=== PATIENT | female | born 1975 | race Caucasian/White ===

== ENCOUNTER 2020-07-10 22:22 | Inpatient (IN) | payer SELFPAY ==
[2020-07-10] VITALS (7 sets, daily range): BP systolic 124–159; BP diastolic 74–99; PULSE 64–90; RESP 16–20; TEMP 36.4; O2SAT 96–100; BMI 30.9
--- NOTE | 2020-07-10 22:24 | ECG_ITS ---
[facility] Test Date: 2020-07-10 Pat Name: JOSEPH CASTAÑEDA Department: Room: Gender: Female Taxation Accountant: : 1975 Requested By: Reza Henriquez Order Number: [id number] Scar MD: Clifford Sim M.D. Measurements Intervals [place] Rate: 81 P: 31 MN: 159 QRS: 4 QRSD: 132 T: 68 QT: 437 QTc: 509 Interpretive Statements ELECTRONIC VENTRICULAR PACEMAKER-a sensed, V paced rhythm ABNORMAL RHYTHM ECG No previous ECG available for comparison Electronically Signed On 07-11-2020 20:10:41 HAND RIGGER by Clifford Sim M.D. [id number] f
--- NOTE | 2020-07-10 22:24 | W.ED.OVERDOS ---
HPI - Overdose General: Chief Complaint: Overdose Stated Complaint: OVERDOSE Time Seen by Provider: 07/10/20 22:23 Source: patient Limitations: no limitations History of Present Illness: HPI Narrative: 45-year-old female who took roughly 10 25 mg Benadryl's 1 to 2 hours ago and intent to kill herself. She states her son a year ago and she has been having increasing depression and thoughts of harming herself. She denies any previous psych placement. She denies any worsening improving factors. She is tearful here. complaint: intentional overdose Onset (ago): hour(s) Review of Systems Const: Denies: fever(s), chills, body aches or change in appetite Eyes: Denies: blurry vision or eye discomfort ENMT: Denies: throat pain or dental pain Card: Denies: chest pain Resp: Denies: dyspnea GI: Denies: abdominal pain, nausea, vomiting or diarrhea : Denies: dysuria Musc: Denies: neck pain or back pain Skin/Breast: Denies: rash Neuro: Denies: headache(s) Psych: Reports: depression and suicidal ideation Jc/Lymph: Denies: easy bruising All/Imm: Denies: urticaria Physical Exam Const: COMMON NORMALS: no acute distress, patient oriented x3 and healthy appearing HENMT: COMMON NORMALS: normocephalic and atraumatic HEAD & SCALP: normocephalic and atraumatic Eye: COMMON NORMALS: Equal, round and reactive pupils present and EOMs intact bilaterally PUPIL: Yes Equal, round and reactive pupils present Neck/C-Spine: COMMON NORMALS: full ROM and supple Chest: COMMONS NORMALS: normal inspection of the chest and normal palpation of entire chest wall Resp: COMMON NORMALS: normal respiratory effort, No retractions, No use of accessory muscles and clear to auscultation bilaterally AUSCULTATION: clear to auscultation bilaterally Cardio: COMMON NORMALS: regular rate, regular rhythm and No murmurs present (Cardio) RATE: regular rate RHYTHM: regular rhythm GI: COMMON NORMALS: Normal to inspection, nondistended, normoactive bowel sounds present, Soft to palpation, non-tender and no masses PALPATION: Yes Soft to palpation Extremity: COMMON NORMALS: normal to inspection and full ROM Neuro: COMMON NORMALS: patient oriented x3, moves all extremities and no focal motor deficits Psych: COMMON NORMALS: mental status grossly normal and cooperative MOOD & AFFECT: Yes depressed mood and Yes fearful THOUGHT CONTENT: Yes Suicidality present Skin: COMMON NORMALS: no rashes or lesions noted and no wounds GENERAL SKIN EXAM: no rashes or lesions noted Course Vital Signs: Vital signs: Vital Signs Temperature 97.6 F 07/10/20 22:22 Pulse Rate 80 07/10/20 22:28 Respiratory Rate 20 H 07/10/20 22:28 Blood Pressure 147/76 07/10/20 22:28 Pulse Oximetry 97 07/10/20 22:28 MDM - Overdose MDM Narrative: Medical decision making narrative: Marguerite presents here with overdose attempt on Benadryl. She showed no symptoms here of significant overdose. EKG showed no QTC prolongation she had no tachycardia. Patient's placed under 96 I spoke to psychiatrist and will admit to the psychiatric unit. Patient is medically cleared. Lab Data: Labs: Lab Results 07/10/20 07/10/20 Range/Units 22:50 22:50 WBC 12.5 H (4.0-10.0) 10^3/ uL RBC 4.73 (4.1-5.3) 10^6/u L Hgb 14.1 (11.5-15.3) g/dL Hct 42.5 (37.0-47.0) % MCV 89.9 (81-99) fL MCH 29.8 (28.0-34.0) pg MCHC 33.2 (30.0-36.0) g/dL RDW 12.0 L (12.1-15.1) % Plt Count 338 (130-400) 10^3/c mm MPV 9.5 (7.4-10.4) fL Neut % (Auto) 74.3 % Lymph % (Auto) 17.0 % Robertson % (Auto) 5.9 % Eos % (Auto) 1.5 % Baso % (Auto) 0.6 % Neut # (Auto) 9.30 H (1.8-7.7) 10^3/u L Lymph # (Auto) 2.1 (0.8-4.8) 10^3/u L Robertson # (Auto) 0.7 (0.2-0.9) 10^3/u L Eos # (Auto) 0.2 (0.0-0.8) 10^3/u L Baso # (Auto) 0.1 (0.0-0.1) 10^3/u L Nucleated RBC % (a uto) 0 % Nucleated RBCs # 0.0 /100WBC Sodium 137 (136-145) mmol/L Potassium 3.9 (3.5-5.1) mmol/L Chloride 103 (98-107) mmol/L Carbon Dioxide 24 (22-29) mmol/L Anion Gap 13.9 (5-19) BUN 15 (6-20) mg/dL Creatinine 0.8 (0.5-0.9) mg/dL GFR Calculation 77.6 L (90-130) mL/min Glucose 104 (65-115) mg/dL Calculated Osmolal ity 285 (285-295) mOsm/k g Calcium 9.9 (8.5-10.5) mg/dL Total Bilirubin 0.4 (0.15-1.2) mg/dL AST 26 (0-32) U/L ALT 42 H (0-33) U/L Alkaline Phosphata se 110 H (35-105) IU/L Total Protein 7.7 (6.6-8.7) g/dL Albumin 4.5 (3.5-5.2) g/dL Globulin 3.2 (1.3-4.6) g/dL Salicylates < 0.3 L (3-10) mg/dL Acetaminophen < 5.0 L (10-30) ug/mL Ethyl Alcohol < 10 (0-10) mg/dL EKG Data^: EKG 1: Attestation: I personally reviewed and interpreted this EKG as follows: EKG interpretation date: 07/10/20 EKG interpretation time: 22:26 Interpretation: paced rhythm hr [address] ort wave abnormalities qrs 132 qtc 474 Discharge Plan Discharge Patient Disposition: Admitted As Inpatient Clinical Impression: Drug overdose Qualifiers: Encounter type: initial encounter Injury intent: intentional self-harm Qualified Code(s): T50.902A - Poisoning by unspecified drugs, medicaments and biological substances, intentional self-harm, initial encounter Condition: Stable Coding Level of Care Code ED Senior Consulting Manager for g Fwd Exam Comprehensive
[2020-07-10 22:57] LABS: Basophils # 0.1 10^3/uL (0.0-0.1); Basophils % 0.6 %; Eosinophils # 0.2 10^3/uL (0.0-0.8); Eosinophils % 1.5 %; Hematocrit 42.5 % (37.0-47.0); Hemoglobin 14.1 g/dL (11.5-15.3); Lymphocytes # 2.1 10^3/uL (0.8-4.8); Mean Corpuscular HGB Conc 33.2 g/dL (30.0-36.0); Mean Corpuscular Hemoglobin 29.8 pg (28.0-34.0); Mean Corpuscular Volume 89.9 fL (81-99); Mean Platelet Volume 9.5 fL (7.4-10.4); Monocytes # 0.7 10^3/uL (0.2-0.9); Monocytes % 5.9 %; Neutrophils % 74.3 %; Nucleated Red Blood Cells % 0 %; Platelet Count 338 10^3/cmm (130-400); Red Blood Count 4.73 10^6/uL (4.1-5.3); White Blood Count 12.5 10^3/uL (4.0-10.0)
[2020-07-10] MEDS: sodium chloride 0.9% 1,000 ML 999 ML IV (23:00)
[2020-07-10 23:14] LABS: Alanine Aminotransferase 42 U/L (0-33); Albumin Level 4.5 g/dL (3.5-5.2); Alkaline Phosphatase 110 IU/L (35-105); Anion Gap 13.9 (5-19); Aspartate Amino Transferase 26 U/L (0-32); Blood Urea Nitrogen 15 mg/dL (6-20); Calcium 9.9 mg/dL (8.5-10.5); Carbon Dioxide 24 mmol/L (22-29); Chloride 103 mmol/L (98-107); Globulin 3.2 g/dL (1.3-4.6); Glomerular Filtration Rate 77.6 mL/min (90-130); Glucose 104 mg/dL (65-115); Osmolality Calculated 285 mOsm/kg (285-295); Potassium 3.9 mmol/L (3.5-5.1); Sodium 137 mmol/L (136-145); Total Bilirubin 0.4 mg/dL (0.15-1.2); Total Protein 7.7 g/dL (6.6-8.7)
[2020-07-10 23:33] LABS: Acetaminophen < 5.0 ug/mL (10-30); Alcohol Level < 10 mg/dL (0-10); Salicylate < 0.3 mg/dL (3-10)
[2020-07-10 23:54] LABS: HCG Qualitative Urine. Negative (Negative)
[2020-07-11 00:08] LABS: Amphetamines Screen Urine Positive (Negative); Barbiturates Screen Urine Negative (Negative); Benzodiazepines Screen Urine Negative (Negative); Cocaine Screen Urine Negative (Negative); Opiate Screen Urine Negative (Negative); PCP Screen Urine Negative (Negative); THC Screen Urine Negative (Negative)
[2020-07-11 00:13] VITALS: BP 144/86; PULSE 79; RESP 14; O2SAT 99
[2020-07-11 00:44] VITALS: BP 144/86; PULSE 74; RESP 14; O2SAT 99
[2020-07-11 01:03] VITALS: BP 134/85; PULSE 77; RESP 14; TEMP 36.7; O2SAT 97
[2020-07-11 01:29] LABS: Add Urine Microscopic? YES; Bilirubin Urine Neg (Negative); Blood Urine 2+ (Negative); Glucose Urine UA Norm (Normal); Ketones Urine Negative (Negative); Leukocyte Esterase Urine Negative (Negative); Nitrate Urine Negative (Negative); Protein Urine Neg (Negative); Specific Gravity, Urine 1.015 (1.005-1.030); Urine Appearance Clear (CLEAR); Urine Color Yellow (Yellow); Urobilinogen Urine Norm (Negative)
[2020-07-11 01:30] LABS: Add Urine Culture? Yes; Bacteria Urine 3+ /hpf; RBC Urine 0-4 /hpf (0-2)
[2020-07-11 06:00] VITALS: BP 134/85; PULSE 77; RESP 14; TEMP 36.7; O2SAT 97
[2020-07-11 14:00] VITALS: BP 132/83; PULSE 77; RESP 18; TEMP 36.2; O2SAT 97
[2020-07-11] MEDS: carvedilol 6.25 mg Tablet PO (17:03)
[2020-07-11 20:12] VITALS: BP 133/82; PULSE 86; RESP 20; TEMP 36.7; O2SAT 95
--- NOTE | 2020-07-11 20:40 | P.HP_ITS ---
Providers/Chief Complaint Admitting Physician: Moy Luke MD Chief Complaint: OVERDOSE HPI NPU History of Present Illness Marguerite Shirley is a 45 year old female Chief Complaint: Overdose Stated Complaint: OVERDOSE Time Seen by Provider: 07/10/20 22:23 Source: patient Limitations: no limitations History of Present Illness: HPI Narrative: 45-year-old female who took roughly 10 25 mg Benadryl's 1 to 2 hours ago and intent to kill herself. She states her son a year ago and she has been having increasing depression and thoughts of harming herself. She denies any previous psych placement. She den ies any worsening improving factors. She is tearful here. complaint: intentional overdose Onset (ago): hour(s). She was admitted to the neuropsychiatric unit for definitive treatment of those issues. She reports that she is never had psychiatric patient hospitalization and she had no history of suicide attempts. She reports that she did have the past trauma of her son dying about a year ago. She has been really upset by it because it is being labeled as an overdose but she went on a long description of the reasons why she does not feel like that was what happened. She smokes about a pack of cigarettes a day denies alcohol use, marijuana use and was elusive about her positive screen for methamphetamines. She denies a history of a DUI but did have a time she went to some programming. She was often hard to foster regards to specific issues from her past. 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 She was quite labile and emotional when we discussed her being on a hold and the fact that we will do have some period of observation given the reports that she took medication to help me sleep. Psychiatric history: As above. Substance abuse history: As above. Family history: She denies mental health or addiction issues that run in the family though obviously she had a son who per the autopsy had some addiction issue. He denies any suicide attempts or completions in the family per Developmental history: There were no problems with the , or delivery, learned to walk and talk and met developmental milestones on time, and denies need for speech therapy, learning support, emotional support or special education classes. Psychosocial history: She reports that her mother and father were together when she was born and she has an older brother that is the product of that union. She endorsed her childhood was unremarkable and denied emotional, physical or sexual abuse. Highest grade reach was the 10th grade and she never got her GED. She endorses being a heterosexual and her longest relationship was 10 years. She is never officially been , she has 3 children 28, 2219 years old, she never been in the and endorses a belief in God. Her longest employment was couple years at [employer]. She reports that she lives in a house. Legal history: She endorses being in prison about 4 times. Being 6 months. Medical history: She reports obesity, history of left bundle branch block, history of heart failure and cardiomyopathy Meds NPU Home Medications Medication Instructions Recorded Confirmed Last Taken Type Aspirin Low Dose 81 mg PO BEDTIME 07/11/20 07/11/20 Unknown History Entresto 1 tab PO BID 07/11/20 07/11/20 Unknown History atorvastatin 40 mg PO DAILY 07/11/20 07/11/20 Unknown History carvedilol 6.25 mg PO BID 07/11/20 07/11/20 Unknown History hydroxyzine HCl 50 mg PO BEDTIME 07/11/20 07/11/20 Unknown History levothyroxine 75 mg PO QPM 07/11/20 07/11/20 Unknown History Allergies Allergy/AdvReac Type Severity Reaction Status Date / Time Penicillins Allergy ALGY-Rash Verified 07/10/20 22:28 Mental Status Exam MSE Comments: This is an obese white female in hospital scrubs with limited grooming and appropriate eye contact. No abnormal movements except for psychomotor agitation. Semicooperative with exam and moderate to extreme dis tress. Speech was increased volume mood described as fine affect hysterical. Thought process organized. Thought content: Patient denied suicidal or homicidal ideation, there were no delusions reported or noted, she denied any auditory or visual hallucinations. Attention and concentration appeared intact and memory was mostly reliable but not formally tested. She is alert and oriented x3. Insight and judgment are limited and impulse control is impaired. Vitals/I&O/Wt Last Vital Signs Temp 98.0 F 07/11/20 20:12 Pulse 86 07/11/20 20:12 Resp 20 H 07/11/20 20:12 BP 133/82 07/11/20 20:12 Pulse Ox 95 07/11/20 20:12 Weight last 48 hrs Weight 81.647 kg Data NPU : 07/10/20 22:50 07/10/20 22:50 A&P Assessment and plan (1) Bereavement: Status: Acute (2) Drug overdose: Status: Acute Qualifiers: Encounter type: initial encounter Injury intent: intentional self-harm Qualified Code(s): T50.902A - Poisoning by unspecified drugs, medicaments and biological substances, intentional self-harm, initial encounter (3) Depression: Status: Acute (4) Cluster B personality disorder: Status: Acute Additional A&P Information This is a 45-year-old white female with a history of recent loss of a child with the anniversary nearing and reported overdose to sleep, who presents with significant mood dysregulation and now wanting to be discharged on a 96-hour hold. 1. Continue current medication. We will offer medication to help with depression anxiety while here. 2. Continue 15-minute checks for safety. 3. Encourage individual, group and milieu therapy. 4. Work with social work team to connect with outpatient services. 5. Encourage exploration of sober living services after discharge at the highest level of care to which she is willing to commit. Involuntary Hold Information 96 Hour Hold: 96 Hour Involuntary Admission: Yes 96 Hour Hold Ending Date: 07/16/20 96 Hour Hold Ending Time: 23:49 Attestations NPU Medical Necessity Statement*: Inpatient hospitalization is medically necessary and the clinically appropriate intervention at this time. We will monitor medications and make changes as indicated. Patient will be in the hospital for over two midnights. We will explore the 96-hour hold and discharge after reasonable observation and exploration of lethality. Likely length of stay 2-4 days. Coding Level of Care Code Acute Sample Mounter for Ngozi Hutchinson Diagnoses Bereavement Z63.4 Drug overdose T50.902A Encounter type: initial encounter Injury intent: intentional self-harm Depression F32.9 Cluster B personality disorder F60.89
[2020-07-11] MEDS: hyDROXYzine 25 mg Capsule 50 MG PO (23:38)
[2020-07-11] MEDS: aspirin 81 mg EC Tablet PO (23:38)
[2020-07-11] MEDS: trazodone 50 mg Tablet PO (23:40)
[2020-07-11] MEDS: levothyroxine 25 mcg Tablet 75 MCG PO (23:41)
[2020-07-12 05:58] VITALS: BP 103/64; PULSE 68; RESP 16; TEMP 36.8; O2SAT 96
[2020-07-12] MEDS: carvedilol 6.25 mg Tablet PO ×2 (08:20→17:07)
[2020-07-12] MEDS: atorvastatin 40 mg Tablet PO (08:20)
[2020-07-12 14:00] VITALS: BP 108/67; PULSE 80; RESP 16; TEMP 36.6; O2SAT 96
--- NOTE | 2020-07-12 18:52 | PM.NPN ---
Subjective NPU Subjective: Interval history: Marguerite presents today really struggling with understanding the situation that she finds himself in. She wants to discharge but she seems to be unwilling to accept that she is on a 96-hour hold secondary to concerns about an intentional overdose. She reluctantly accepted the fact that for us to feel comfortable about her discharging off of the 96-hour hold we need to see a 24-hour. Where she is demonstrating emotional control. Certainly cluster B traits seem to be factoring into her presentation. She is eating and sleeping okay. She continues to deny any interest in initiation of medications for depression or anxiety. Mental Status Exam MSE Comments: This is an obese white female in hospital scrubs with limited grooming and appropriate eye contact. No abnormal movements except for psychomotor agitation. Slightly more cooperative with exam in moderate distress. Speech was increased rate and volume mood described as fine affect slightly less animated. Thought process organized. Thought content: Patient denied suicidal or homicidal ideation, there were no delusions reported or noted, she denied any auditory or visual hallucinations. Attention and concentration appeared intact and memory was mostly reliable but not formally tested. She is alert and oriented x3. Insight and judgment are limited and impulse control is impaired, but improving. Vitals/I&O/Wt Last Vital Signs Temp 98.4 F 07/12/20 20:09 Pulse 75 07/12/20 20:09 Resp 16 07/12/20 20:09 BP 126/85 07/12/20 20:09 Pulse Ox 97 07/12/20 20:09 Data NPU : 07/10/20 22:50 07/10/20 22:50 Micro: Microbiology 07/10/20 23:44 Urine Culture - Preliminary Urine,Clean Catch Gram Negative Rods Microbiology 07/10/20 23:44 Urine,Clean Catch Urine Culture - Preliminary Gram Negative Rods A&P Assessment and plan (1) Cluster B personality disorder: Status: Acute Additional A&P Information (1) Bereavement: (2) Drug overdose: (3) Depression: This is a 45-year-old white female with a history of recent loss of a child with the anniversary nearing and reported overdose to sleep, who presents with significant mood dysregulation and now wanting to be discharged on a 96-hour hold. 1. Continue current medication. We will offer medication to help with depression anxiety while here. 2. Continue 15-minute checks for safety. 3. Encourage individual, group and milieu therapy. 4. Work with social work team to connect with outpatient services. 5. Encourage exploration of sober living services after discharge at the highest level of care to which she is willing to commit. Involuntary Hold Information 96 Hour Hold: 96 Hour Involuntary Admission: Yes 96 Hour Hold Ending Date: 07/16/20 96 Hour Hold Ending Time: 23:49 Attestations NPU Medical Necessity Statement*: Inpatient hospitalization is medically necessary and the clinically appropriate intervention at this time. We will monitor medications and make changes as indicated. We will explore the 96-hour hold and discharge after reasonable observation and exploration of lethality. Likely length of stay 1-3 days. Coding Level of Care Code Acute Leadership Development Instructor for maddie Fwd Diagnoses Cluster B personality disorder F60.89
[2020-07-12 20:09] VITALS: BP 126/85; PULSE 75; RESP 16; TEMP 36.9; O2SAT 97
[2020-07-12] MEDS: hyDROXYzine 25 mg Capsule 50 MG PO (22:02)
[2020-07-12] MEDS: trazodone 50 mg Tablet PO (22:02)
[2020-07-12] MEDS: aspirin 81 mg EC Tablet PO (22:03)
[2020-07-12] MEDS: levothyroxine 25 mcg Tablet 75 MCG PO (22:03)
[2020-07-13 06:00] VITALS: BP 110/75; PULSE 77; RESP 16; TEMP 36.5; O2SAT 97
[2020-07-13] MEDS: atorvastatin 40 mg Tablet PO (08:25)
[2020-07-13] MEDS: carvedilol 6.25 mg Tablet PO (08:25)
--- NOTE | 2020-07-13 09:55 | P.DS_ITS ---
Diagnoses at Discharge Discharge Diagnosis (1) Bereavement: Status: Acute (2) Drug overdose: Status: Acute Qualifiers: Encounter type: initial encounter Injury intent: intentional self-harm Qualified Code(s): T50.902A - Poisoning by unspecified drugs, medicaments and biological substances, intentional self-harm, initial encounter (3) Depression: Status: Acute (4) Cluster B personality disorder: Status: Acute Reason for Visit Reason for Visit: OVERDOSE Brief History: History of Present Illness Marguerite Shirley is a 45 year old female Chief Complaint: Overdose Stated Complaint: OVERDOSE Time Seen by Provider: 07/10/20 22:23 Source: patient Limitations: no limitations History of Present Illness: HPI Narrative: 45-year-old female who took roughly 10 25 mg Benadryl's 1 to 2 hours ago and intent to kill herself. She states her son a year ago and she has been having increasing depression and thoughts of harming herself. She denies any previous psych placement. She denies any worsening improving factors. She is tearful here. MD complaint: intentional overdose Onset (ago): hour(s). She was admitted to the neuropsychiatric unit for definitive treatment of those issues. She reports that she is never had psychiatric patient hospitalization and she had no history of suicide attempts. She reports that she did have the past trauma of her son dying about a year ago. She has been really upset by it because it is being labeled as an overdose but she went on a long description of the reasons why she does not feel like that was what happened. She smokes about a pack of cigarettes a day denies alcohol use, marijuana use and was elusive about her positive screen for methamphetamines. She denies a history of a DUI but did have a time she went to some programming. She was often hard to foster regards to specific issues from her past. And she seemed to be understanding that her issue was coming to career services assistant with this loss and was not interested in medication trials after discussion of the risks, benefits and alternatives of different medications. She was quite labile and emotional when we discussed her being on a hold and the fact that we will do have some period of observation given the reports that she took medication to help me sleep. Psychiatric history: As above. Substance abuse history: As above. Family history: She denies mental health or addiction issues that run in the family though obviously she had a son who per the autopsy had some addiction issue. He denies any suicide attempts or completions in the family per Developmental history: There were no problems with the , or delivery, learned to walk and talk and met developmental milestones on time, and denies need for speech therapy, learning support, emotional support or special education classes. Psychosocial history: She reports that her mother and father were together when she was born and she has an older brother that is the product of that union. She endorsed her childhood was unremarkable and denied emotional, physical or sexual abuse. Highest grade reach was the 10th grade and she never got her GED. She endorses being a heterosexual and her longest relationship was 10 years. She is never officially been , she has 3 children 28, 2219 years old, she never been in the and endorses a belief in God. Her longest employment was couple years at [employer]. She reports that she lives in a house. Legal history: She endorses being in [place] [facility]. Being 6 months. Medical history: She reports obesity, history of left bundle branch block, history of heart failure and cardiomyopathy Hospital Course Hospital Course Marguerite presented to the emergency department with concerns of an intentional overdose, suicidality, anxiety and bereavement. She was admitted to the neuropsychiatric unit for definitive treatment of those issues. On the unit she slowly acclimated to the individual, group and milieu therapies provided she was not open to a trial of medication but was on a 96-hour hold and was observed to evaluate for safety. She was able to contract for safety prior to this. During the hospitalization, patient had routine laboratory studies which were within normal limits except for few outliers. Additionally there was a general medical evaluation which was also within normal limits and revealed no new acute processes. Discharge Summary: At the time of discharge, she was absent psychosis or lethality. Mood and anxiety were well managed. Patient endorsed a plan to avoid all drugs of abuse and follow-up with the aftercare recommendations of the treatment team. Patient was evaluated and deemed to be absent credible lethality, and had achieved the maximum benefit from an inpatient hospitalization given her lack of interest in psychotropic interventions, so was discharged. Involuntary Hold Information 96 Hour Hold: 96 Hour Involuntary Admission: Yes 96 Hour Hold Ending Date: 07/16/20 96 Hour Hold Ending Time: 23:49 Mental Status Exam MSE Comments: This is an obese white female in hospital scrubs with limited grooming and appropriate eye contact. No abnormal movements. More cooperative with exam in no acute distress. Speech was more normal rate and volume. Mood described as better, affect congruent. Thought process organized. Thought content: Patient denied suicidal or homicidal ideation, there were no delusions reported or noted, she denied any auditory or visual hallucinations. Attention and concentration appeared intact and memory was mostly reliable but not formally tested. She is alert and oriented x3. Insight and judgment are improving and impulse control is improving. Discharge Data Vitals: Last Vital Signs Temp 97.7 F 07/13/20 10:35 Pulse 77 07/13/20 10:35 Resp 16 07/13/20 10:35 BP 110/75 07/13/20 10:35 Pulse Ox 97 07/13/20 10:35 Discharge Plan Discharge Patient Disposition: Home Condition: Stable Prescriptions: Continued atorvastatin 40 mg Tablet 40 mg PO DAILY RF: 0 carvedilol 6.25 mg Tablet 6.25 mg PO BID RF: 0 hydroxyzine HCl 50 mg Tablet 50 mg PO BEDTIME RF: 0 Aspirin Low Dose 81 mg Tablet,Delayed Release (Dr/Ec) 81 mg PO BEDTIME RF: 0 Entresto 24-26 mg Tablet 1 tab PO BID RF: 0 levothyroxine 75 mg PO QPM RF: 0 Discharge Orders: Discharge Order (Routine); Ordered 07/13/20 Ordered By: Moy Luke Referrals: Dr. Ammy Dent [Other] - 07/23/20 10:30 am (To establish primary care Ask about referral to cardiology and neurology) Grief Support Group [Other] (Held at 12:00 noon at [facility] ([facility])) [facility] [Outside] (local resource for outpatient mental health services, including medication management and therapy.) Discharge Diet: Cardiac Discharge Activity: Resume usual activity Patient Instructions: Depression, Grief and Loss (DC) Discharge Attestations NPU Time Spent in Discharge Care*: less than 30 min Specific Discharge Activities: Specific discharge activities: educating patient, discussing with command center analyst/social workers/dc planners, documenting/other paperwork and evaluating patient/reviewing data Coding Level of Care Code Acute Rail Detector Car Operator for Ngozi Fwd Diagnoses Bereavement Z63.4 Drug overdose T50.902A Encounter type: initial encounter Injury intent: intentional self-harm Depression F32.9 Cluster B personality disorder F60.89
[2020-07-13 10:35] VITALS: BP 110/75; PULSE 77; RESP 16; TEMP 36.5; O2SAT 97
== END 2020-07-13 11:44 | disposition home or self-care (01) | DRG 918 ==
LOC: ER 07-11 00:17 → NP 07-11 00:23
PROVIDERS: Admitting Provider Psychiatry & Neurology Psychiatry; Emergency Provider Emergency Medicine; Visit Provider Psychiatry & Neurology Psychiatry
DX: T45.0X2A Poisoning by antiallergic and antiemetic drugs, intentional self-harm, initial encounter (principal); F17.210 Nicotine dependence, cigarettes, uncomplicated; F15.90 Other stimulant use, unspecified, uncomplicated; E66.9 Obesity, unspecified; Z68.30 Body mass index [BMI] 30.0-30.9, adult; Z63.4 Disappearance and death of family member; F32.9 Major depressive disorder, single episode, unspecified; F60.89 Other specific personality disorders
CPT/HCPCS: 12345; 80053; 80306; 80307; 81001; 81025; 85025; 87077; 87086; 87186; 93005; 99282; J7030

== ENCOUNTER 2020-12-31 12:16 | Emergency (ER) | payer SELFPAY ==
[2020-12-31 12:27] VITALS: BP 168/89; PULSE 95; RESP 24; TEMP 36.7; O2SAT 95; BMI 36.0
--- NOTE | 2020-12-31 12:53 | ED_ITS ---
HPI - Chest Pain General: Chief Complaint: Chest Pain Stated Complaint: CHEST PAINS Time Seen by Provider: 12/31/20 12:35 Source: patient Mode of arrival: ambulatory Limitations: no limitations History of Present Illness: HPI narrative: Chest pain that started 20 minutes before arrival to the ER. Sudden onset crushing chest pain. Chest pain retrosternal in nature. She has a history of dilated cardiomyopathy and has a pacemaker defibrillator. She however has not been compliant with her medications she states that she cannot afford them. MD complaint: chest pain Pertinent past history: coronary artery disease and prior IA Onset (ago): minute(s) (20) Timing of current episode: constant Prior episodes: No Onset: during rest Pain location: substernal Pain radiation: none Severity: severe Quality: sharp Relieving factors: nothing Exacerbating factors: nothing Associated symptoms: Deny abdominal pain, diaphoresis, dyspnea, fever(s), leg edema, nausea, palpitations, sense of impending doom, syncope or vomiting Treatment prior to arrival: none Review of Systems General: Reports: 10 or more systems reviewed and unremarkable except in HPI and below Const: Denies: fever(s) or diaphoresis Card: Denies: palpitations or syncope Resp: Denies: dyspnea GI: Denies: abdominal pain, nausea or vomiting PFSH ED PFSH: Medical History (Reviewed 01/01/21 @ 00:37 by Brady Palomino MD, [facility]) Anxiety and depression Bereavement BRBPR (bright red blood per rectum) Decreased glomerular filtration rate (GFR) Dilated cardiomyopathy Drug overdose History of cardiac pacemaker History of melena History of pacemaker Hyperlipidemia Hypothalamic hypothyroidism Hypothyroidism Left bundle branch block Leukocytosis Mixed hyperlipidemia Obesity (BMI 30-39.9) Seizure disorder Surgical History (Reviewed 01/01/21 @ 00:37 by Brady Palomino MD, [facility]) History of appendectomy open-1992 History of total hysterectomy Family History (Reviewed 01/01/21 @ 00:37 by Brady Palomino MD, [facility]) Family/Other Cancer Grandfather Cancer Father Diabetes Grandmother Diabetes Other CAD (coronary artery disease) Denies family history of Stroke Social History (Reviewed 01/01/21 @ 00:37 by Brady Palomino MD, [facility]) Smoking and tobacco status: current every day smoker Alcohol intake: former Desire information about substance/drug rehabilitation?: No Counseling given: No Physical Exam Const: COMMON NORMALS: no acute distress, average body habitus, patient oriented x3, no limitations, healthy appearing, alert and well nourished HENMT: COMMON NORMALS: normocephalic, atraumatic and moist oral mucous membranes HEAD & SCALP: normocephalic and atraumatic Eye: COMMON NORMALS: Equal, round and reactive pupils present, EOMs intact bilaterally, conjunctivae normal and no scleral icterus CONJUNCTIVA: Yes conjunctivae normal PUPIL: Yes Equal, round and reactive pupils present Neck/C-Spine: COMMON NORMALS: no meningeal signs and no JVD Resp: COMMON NORMALS: normal respiratory effort, No retractions, No use of accessory muscles, clear to auscultation bilaterally and percussion normal AUSCULTATION: clear to auscultation bilaterally PERCUSSION: percussion normal Cardio: COMMON NORMALS: no JVD, regular rate, regular rhythm, S1 normal heart sound present, S2 normal heart sound present, No gallops present (Cardio), No clicks present (Cardio), No murmurs present (Cardio), No rub (Cardio) and Ping pheral pulses 2+ throughout RATE: regular rate RHYTHM: regular rhythm HEART SOUNDS: S1 normal heart sound present and S2 normal heart sound present PERIPHERAL PULSES: Peripheral pulses 2+ throughout GI: COMMON NORMALS: Normal to inspection, nondistended, normoactive bowel sounds present, Soft to palpation, non-tender, No hepatosplenomegaly present, no masses and no bruits PALPATION: Yes Soft to palpation and Yes No hepatosplenomegaly present Extremity: COMMON NORMALS: normal to inspection, full ROM, capillary refill normal, no calf tenderness and no pedal edema Neuro: COMMON NORMALS: patient oriented x3 SENSORIUM/ORIENTATION: Yes alert MENINGEAL SIGNS: Yes no meningeal signs Skin: COMMON NORMALS: no rashes or lesions noted, no wounds, turgor normal, no jaundice, no petechiae and no mottling GENERAL SKIN EXAM: no rashes or lesions noted and turgor normal Course Reevaluation(s): Reevaluation #1: Discussed her lab and imaging findings with her. Negative for acute findings. We will discharge her home with no new orders. She voiced understanding and is in agreement with the plan. Time: 16:54 Vital Signs: Vital signs: Vital Signs Temperature 98.1 F 12/31/20 12:27 Pulse Rate 82 12/31/20 17:14 Respiratory Rate 18 12/31/20 17:14 Blood Pressure 142/87 12/31/20 17:14 Pulse Oximetry 98 12/31/20 17:14 MDM - Chest Pain MDM Narrative: Medical decision making narrative: 45-year-old female patient who presented to the emergency department with chest pain. Evaluation in the emergency department was unremarkable. Chest pain relieved by nitroglycerin. She is discharged home with no new orders. Heart score is a 3 minutes she has a 1.7% risk of a major adverse cardiac event within the next 6 weeks. Medical Records: Attestation: I reviewed the patient's medical records. Lab Data: Attestation: I reviewed the patient's lab results. Labs: Lab Results 12/31/20 12/31/20 12/31/20 Range/Units 13:20 13:20 13:20 WBC 8.8 (4.0-10.0) 10^3/ uL RBC 4.92 (4.1-5.3) 10^6/u L Hgb 14.8 (11.5-15.3) g/dL Hct 44.7 (37.0-47.0) % MCV 90.9 (81-99) fL MCH 30.1 (28.0-34.0) pg MCHC 33.1 (30.0-36.0) g/dL RDW 12.7 (12.1-15.1) % Plt Count 312 (130-400) 10^3/c mm MPV 10.1 (7.4-10.4) fL Neut % (Auto) 66.0 % Lymph % (Auto) 23.3 % Cocke % (Auto) 6.8 % Eos % (Auto) 2.0 % Baso % (Auto) 0.9 % Neut # (Auto) 5.80 (1.8-7.7) 10^3/u L Lymph # (Auto) 2.1 (0.8-4.8) 10^3/u L Cocke # (Auto) 0.6 (0.2-0.9) 10^3/u L Eos # (Auto) 0.2 (0.0-0.8) 10^3/u L Baso # (Auto) 0.1 (0.0-0.1) 10^3/u L Nucleated RBC % (a uto) 0 % Nucleated RBCs # 0.0 /100WBC D-Dimer (0-0.59) ug/mIFE U Sodium 137 (136-145) mmol/L Potassium 4.2 (3.5-5.1) mmol/L Chloride 102 (98-107) mmol/L Carbon Dioxide 23 (22-29) mmol/L Anion Gap 16.2 (5-19) BUN 9 (6-20) mg/dL Creatinine 0.7 (0.5-0.9) mg/dL GFR Calculation 90.5 (90-130) mL/min Glucose 128 H (65-115) mg/dL Calculated Osmolal ity 284 L (285-295) mOsm/k g Calcium 9.1 (8.5-10.5) mg/dL Total Bilirubin 0.4 (0.15-1.2) mg/dL AST 76 H (0-32) U/L ALT 109 H (0-33) U/L Alkaline Phosphata se 123 H (35-105) IU/L Troponin T Baselin e 7 (0-10) ng/L Troponin T 120 Min rubén (0-10) ng/L Delta Troponin T (0-10) ABS# NT-Pro-B Natriuret Pep 74 (0-125) pg/mL Total Protein 7.1 (6.6-8.7) g/dL Albumin 4.5 (3.5-5.2) g/dL Globulin 2.6 (1.3-4.6) g/dL Lipase 30 (13-60) U/L 12/31/20 12/31/20 Range/Units 14:15 15:35 WBC (4.0-10.0) 10^3/ uL RBC (4.1-5.3) 10^6/u L Hgb (11.5-15.3) g/dL Hct (37.0-47.0) % MCV (81-99) fL MCH (28.0-34.0) pg MCHC (30.0-36.0) g/dL RDW (12.1-15.1) % Plt Count (130-400) 10^3/c mm MPV (7.4-10.4) fL Neut % (Auto) % Lymph % (Auto) % Cocke % (Auto) % Eos % (Auto) % Baso % (Auto) % Neut # (Auto) (1.8-7.7) 10^3/u L Lymph # (Auto) (0.8-4.8) 10^3/u L Cocke # (Auto) (0.2-0.9) 10^3/u L Eos # (Auto) (0.0-0.8) 10^3/u L Baso # (Auto) (0.0-0.1) 10^3/u L Nucleated RBC % (a uto) % Nucleated RBCs # /100WBC D-Dimer 0.29 (0-0.59) ug/mIFE U Sodium (136-145) mmol/L Potassium (3.5-5.1) mmol/L Chloride (98-107) mmol/L Carbon Dioxide (22-29) mmol/L Anion Gap (5-19) BUN (6-20) mg/dL Creatinine (0.5-0.9) mg/dL GFR Calculation (90-130) mL/min Glucose (65-115) mg/dL Calculated Osmolal ity (285-295) mOsm/k g Calcium (8.5-10.5) mg/dL Total Bilirubin (0.15-1.2) mg/dL AST (0-32) U/L ALT (0-33) U/L Alkaline Phosphata se (35-105) IU/L Troponin T Baselin e (0-10) ng/L Troponin T 120 Min rubén 6.81 (0-10) ng/L Delta Troponin T -0.19 L (0-10) ABS# NT-Pro-B Natriuret Pep (0-125) pg/mL Total Protein (6.6-8.7) g/dL Albumin (3.5-5.2) g/dL Globulin (1.3-4.6) g/dL Lipase (13-60) U/L Imaging Data^: CXR: Attestation: I personally reviewed and interpreted this imaging study as follows: Radiologist's impression: [address] [id number] ReportSigned Patient: Alexey Shirley #: [id number]: [id number]#:[id number]/Sex: 45 / FADM Date: 12/31/20Loc: ERRoom/Bed:Attending Dr: Ordering Provider/Ordering MD: Brady Palomino MD, [facility] Date of Service: 12/31/20 Procedure(s): XR chest 1V portable [id number] Accession Number(s): [id number] Report Number: [id number] PROCEDURE INFORMATION: Exam: XR Chest Exam date and time: 12/31/2020 12:52 PM Age: 45 years old Clinical indication: Pain; Other: Chest not specified; Additional info: Cp TECHNIQUE: Imaging protocol: XR of the chest. Views: 1 view. COMPARISON: No relevant prior studies available. FINDINGS: Tubes, catheters and devices: There is a dual lead pacemaker in place. Lungs: Unremarkable. No consolidation. Pleural spaces: Unremarkable. No pleural effusion. No pneumothorax. Heart/Mediastinum: Unremarkable. No cardiomegaly. Bones/joints: Unremarkable. XR/XR chest 1V portable [id number] IMPRESSION: No acute findings Dictated By:Sea Arndt MDSigned By:Sea Arndt MDSigned Date/Time:12/31/20 1504DD/ 1503 EKG Data^: EKG 1: Attestation: I personally reviewed and interpreted this EKG as follows: EKG interpretation date: 12/31/20 EKG interpretation time: 15:21 Prior EKG tracings: available for review Interpretation: Electronic ventricular pacemaker. Heart rate [address] changes. Discharge Plan Discharge Patient Disposition: Home Clinical Impression: Non-cardiac chest pain Condition: Stable Prescriptions: Continued trazodone 50 mg tablet 50 mg PO DAILY Qty: 90 RF: 3 levothyroxine 75 mcg tablet 75 mcg PO DAILY Qty: 90 RF: 2 atorvastatin 40 mg Tablet 40 mg PO DAILY RF: 0 carvedilol 6.25 mg Tablet 6.25 mg PO BID RF: 0 hydroxyzine HCl 50 mg Tablet 50 mg PO DAILY RF: 0 lisinopril 10 mg Tablet 10 mg PO DAILY RF: 0 sertraline 50 mg Tablet 50 mg PO DAILY RF: 0 Entresto 24-26 mg Tablet 1 tab PO BID RF: 0 Discharge Orders: Discharge ED (Routine); Ordered 12/31/20 Ordered By: Brady Palomino Referrals: Jeromy Lewis MD [Primary Care Provider] - 1-3 days Discharge Diet: Usual diet Discharge Activity: Increase activity as tolerated Patient Instructions: Noncardiac Chest Pain (ED) Activity Restrictions/Additional Instructions: Return for any new or worsening symptoms. Follow-up with your primary care provider within 3 days. Continue home medications. Coding Level of Care Code ED [employer] for Ngozi Hutchinson
[2020-12-31 13:28] LABS: Basophils # 0.1 10^3/uL (0.0-0.1); Basophils % 0.9 %; Eosinophils # 0.2 10^3/uL (0.0-0.8); Hematocrit 44.7 % (37.0-47.0); Hemoglobin 14.8 g/dL (11.5-15.3); Lymphocytes # 2.1 10^3/uL (0.8-4.8); Lymphocytes % 23.3 %; Mean Corpuscular HGB Conc 33.1 g/dL (30.0-36.0); Mean Corpuscular Hemoglobin 30.1 pg (28.0-34.0); Mean Corpuscular Volume 90.9 fL (81-99); Mean Platelet Volume 10.1 fL (7.4-10.4); Monocytes # 0.6 10^3/uL (0.2-0.9); Monocytes % 6.8 %; Nucleated Red Blood Cells % 0 %; Platelet Count 312 10^3/cmm (130-400); Red Blood Count 4.92 10^6/uL (4.1-5.3); Red Cell Distribution Width 12.7 % (12.1-15.1); White Blood Count 8.8 10^3/uL (4.0-10.0)
[2020-12-31] MEDS: aspirin 81 mg Chew Tablet 324 MG PO (13:30)
[2020-12-31] MEDS: nitroglycerin 0.4 mg sublingual Tablet SUBLINGUAL (13:34)
[2020-12-31 13:52] LABS: Troponin(5th) Baseline 7 ng/L (0-10)
[2020-12-31 14:01] LABS: Alanine Aminotransferase 109 U/L (0-33); Albumin Level 4.5 g/dL (3.5-5.2); Alkaline Phosphatase 123 IU/L (35-105); Blood Urea Nitrogen 9 mg/dL (6-20); Calcium 9.1 mg/dL (8.5-10.5); Carbon Dioxide 23 mmol/L (22-29); Chloride 102 mmol/L (98-107); Globulin 2.6 g/dL (1.3-4.6); Glomerular Filtration Rate 90.5 mL/min (90-130); Glucose 128 mg/dL (65-115); Lipase 30 U/L (13-60); NT Pro B Type Natriuretic Pept 74 pg/mL (0-125); Osmolality Calculated 284 mOsm/kg (285-295); Sodium 137 mmol/L (136-145); Total Bilirubin 0.4 mg/dL (0.15-1.2); Total Protein 7.1 g/dL (6.6-8.7)
[2020-12-31 14:04] VITALS: BP 132/79; PULSE 84; RESP 18; O2SAT 98
[2020-12-31 14:05] LABS: Anion Gap 16.2 (5-19); Aspartate Amino Transferase 76 U/L (0-32); Potassium 4.2 mmol/L (3.5-5.1)
--- NOTE | 2020-12-31 14:22 | PC.NURSE ---
after patient took first nitro she states this gave me a headache and I dont want anymore of that medication. patient states her back pain is reduced from 5-3 however other pain is unchanged at a 5
[2020-12-31 14:35] LABS: D Dimer 0.29 ug/mIFEU (0-0.59)
--- NOTE | 2020-12-31 14:52 | ECG_ITS ---
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 Measurements Intervals [place] Rate: 75 P: 50 NJ: 161 QRS: 19 QRSD: 132 T: 71 QT: 463 QTc: 519 Interpretive Statements ELECTRONIC VENTRICULAR PACEMAKER A sensed V paced rhythm ABNORMAL RHYTHM ECG Compared to ECG 12/31/2020 12:24:12 No significant changes Electronically Signed On 01-02-2021 0:38:59 CDT by Clifford Sim M.D. [email or web address]
--- NOTE | 2020-12-31 15:03 | PC.PHAR ---
PT STATES THAT SHE COULD NOT AFFORD TO KITCHEN CHEF ALL OF HER MEDICATION LAST MONTH. I CALLED THE PHARMACY, AND SHE HAS SEVERAL MEDICATIONS ON HOLD.
[2020-12-31 15:42] VITALS: BP 137/82; PULSE 77; RESP 16; O2SAT 98
[2020-12-31 16:08] VITALS: BP 139/81; PULSE 73; RESP 16; O2SAT 95
[2020-12-31 16:33] LABS: Troponin 5 2HR 6.81 ng/L (0-10)
[2020-12-31 16:35] LABS: Troponin 5 2HR Delta -0.19 ABS# (0-10)
[2020-12-31] MEDS: diphenhydrAMINE 50 mg/mL SDV 1mL 25 MG IVP (17:04)
[2020-12-31] MEDS: ketorolac 30 mg/mL INJ IVP (17:05)
[2020-12-31 17:14] VITALS: BP 142/87; PULSE 82; RESP 18; O2SAT 98
--- NOTE | 2020-12-31 18:52 | ECG_ITS ---
[facility] Test Date: 2020-12-31 Pat Name: Marguerite Shirley Department: Room: Gender: Female Supervisor [employer]: : 1975 Requested By: Brady Palomino I Order Number: [id number] Scar MD: Clifford Sim M.D. Measurements Intervals [place] Rate: 89 P: 66 MN: 160 QRS: 76 QRSD: 128 T: 74 QT: 418 QTc: 511 Interpretive Statements ELECTRONIC VENTRICULAR PACEMAKER A sensed V paced rhythm Left atrial enlargement ABNORMAL RHYTHM ECG Compared to ECG 07/10/2020 22:26:32 No significant changes Electronically Signed On 01-02-2021 0:38:28 CDT by Clifford Sim M.D. [email or web address]
== END 2020-12-31 17:15 | disposition home or self-care (01) ==
PROVIDERS: Emergency Provider Family Medicine; PCP Family Medicine Adult Medicine
DX: R07.89 Other chest pain (principal); Z95.0 Presence of cardiac pacemaker; E78.5 Hyperlipidemia, unspecified; E78.2 Mixed hyperlipidemia; F17.210 Nicotine dependence, cigarettes, uncomplicated
CPT/HCPCS: 36415; 71045; 80053; 83690; 83880; 84484; 85025; 85378; 93005; 96374; 96375; 99284; J1200; J1885

== ENCOUNTER → 2021-02-01 13:44 | Outpatient (BNVA) | payer OTHER, SELFPAY | PROVIDERS: PCP Family Medicine Adult Medicine; Visit Provider Surgery | DX: Z87.19 Personal history of other diseases of the digestive system (principal); Z20.822 Contact with and (suspected) exposure to COVID-19 | CPT/HCPCS: 87635 ==